=== PATIENT | male | born 1945 | race Caucasian/White ===

== ENCOUNTER 2024-06-14 10:51 | Outpatient (CLI) | payer MEDICARE | END 2024-06-14 10:52 | disposition home or self-care (01) | LOC: CT 10:51 | PROVIDERS: ATTEND Family Medicine | DX: R31.0 Gross hematuria (principal); N28.89 Other specified disorders of kidney and ureter; R91.8 Other nonspecific abnormal finding of lung field; R59.0 Localized enlarged lymph nodes; K76.89 Other specified diseases of liver; I87.8 Other specified disorders of veins | CPT/HCPCS: 74176; 81001 ==

== ENCOUNTER 2024-06-15 07:46 | Outpatient (CLI) | payer MEDICARE | END 2024-06-15 07:47 | disposition home or self-care (01) | LOC: CT 07:46 | PROVIDERS: ATTEND Family Medicine | DX: N28.89 Other specified disorders of kidney and ureter (principal); C78.01 Secondary malignant neoplasm of right lung; C78.02 Secondary malignant neoplasm of left lung; C78.7 Secondary malignant neoplasm of liver and intrahepatic bile duct; C64.1 Malignant neoplasm of right kidney, except renal pelvis; C79.51 Secondary malignant neoplasm of bone; K76.9 Liver disease, unspecified; R59.0 Localized enlarged lymph nodes | CPT/HCPCS: 36415; 71260; 74177; 82565 ==

== ENCOUNTER 2024-07-07 07:23 | Day surgery (SDC) | payer MEDICARE ==
[2024-07-07 08:01] LABS: #Basophils Less than 0.03 10x3/uL (0.0-0.2); %Basophils 0.1 % (0.0-1.0); %Eosinophils 0.4 % (0.0-10.0); %Lymphocytes 23.5 % (21.0-51.0); %Monocytes 13.1 % (0.0-10.0); %Neutrophils 61.5 % (42.0-75.0); Hematocrit 27.8 % (42.0-52.0); Hemoglobin 8.4 g/dL (14.0-18.0); Mean Corpuscular HGB CONC 30.2 g/dL (32.0-36.0); Mean Corpuscular Hemoglobin 24.3 pg (27.0-31.0); Mean Corpuscular Volume 80.3 fL (78.0-98.0); Platelet Count 277 10x3/uL (130-400); Red Blood Cell (RBC) Count 3.46 mill/uL (4.70-6.10)
[2024-07-07 08:28] LABS: INR-International Normal Ratio 1.2; Prothrombin Time 15.2 sec (12.0-14.7)
[2024-07-07 08:29] LABS: PTT 33.6 sec (22.9-36.1)
[2024-07-07] MEDS ORDERED: fentaNYL 50 mcg/mL 1 mL Vial ONE (08:38)
[2024-07-07] MEDS ORDERED: Lidocaine 1% PF 5 ML VIAL ONE (08:38)
[2024-07-07] MEDS ORDERED: Midazolam HCl 2 mg/2 ml Vial ONE (08:38)
[2024-07-07] MEDS ORDERED: Sodium Bicarbonate 2.5 MEQ/5 ML SDV ONE (08:39)
[2024-07-07] MEDS ORDERED: Lidocaine 1% w/Epinephrine 1:100K 20 ML VIAL ONE (08:39)
[2024-07-07] MEDS ORDERED: hydrALAZINE 20 MG/ML VIAL ONE (09:05)
[2024-07-07] MEDS ORDERED: Hydrochlorothiazide 25 MG TAB PO SCH (09:30)
[2024-07-07] MEDS ORDERED: Metoprolol Tartrate 5 MG (5 mL) VIAL ONE (09:36)
== END 2024-07-07 10:20 | disposition home or self-care (01) ==
LOC: CT 07:23
PROVIDERS: ATTEND Family Medicine
DX: N28.89 Other specified disorders of kidney and ureter (principal); Z53.8 Procedure and treatment not carried out for other reasons; C78.7 Secondary malignant neoplasm of liver and intrahepatic bile duct; C78.01 Secondary malignant neoplasm of right lung; C78.02 Secondary malignant neoplasm of left lung
CPT/HCPCS: 85025; 85610; 85730; J0360; 36415; J2250; J3010

== ENCOUNTER 2024-07-27 14:11 | Outpatient (CLI) | payer MEDICARE ==
[2024-07-27] MEDS ORDERED: Iopamidol 370 76% 100 ML VIAL ONE (14:58)
== END 2024-07-27 14:12 | disposition home or self-care (01) ==
LOC: CT 14:11
PROVIDERS: ATTEND Internal Medicine
DX: C64.1 Malignant neoplasm of right kidney, except renal pelvis (principal); I82.3 Embolism and thrombosis of renal vein; D50.8 Other iron deficiency anemias; R06.02 Shortness of breath; C79.89 Secondary malignant neoplasm of other specified sites; J90 Pleural effusion, not elsewhere classified; J98.11 Atelectasis; R91.8 Other nonspecific abnormal finding of lung field; R59.0 Localized enlarged lymph nodes
CPT/HCPCS: 71275; 74160

== ENCOUNTER 2024-08-04 10:01 | Inpatient (IN) | payer MEDICARE ==
[2024-08-04 11:22] LABS: Hematocrit 31.8 % (42.0-52.0); Hemoglobin 9.9 g/dL (14.0-18.0); Mean Corpuscular HGB CONC 31.1 g/dL (32.0-36.0); Mean Corpuscular Hemoglobin 25.6 pg (27.0-31.0); Mean Corpuscular Volume 82.4 fL (78.0-98.0); Mean Platelet Volume 9.8 fL (7.4-10.4); Platelet Count 314 10x3/uL (130-400); RBC Distribution Width 23.4 % (11.5-14.5); Red Blood Cell (RBC) Count 3.86 mill/uL (4.70-6.10)
[2024-08-04] MEDS ORDERED: Sodium Chloride 0.9% 100 ML ONE (11:30)
[2024-08-04] MEDS ORDERED: Cefepime 2 GM VIAL ONE (11:30)
[2024-08-04 11:44] LABS: ALT (SGPT) 46 U/L (Less than 45); AST (SGOT) 142 U/L (11-34); Alkaline Phosphatase 210 U/L (40-110); Anion Gap 16 mmol/L (10-20); BUN (Urea Nitrogen) 83 mg/dL (8.4-25.7); Bilirubin, Total 0.5 mg/dL (0.3-1.2); Calc. Creatinine Clearance 0 mL/min (70-130); Calcium 9.1 mg/dL (7.8-10.44); Carbon Dioxide 24 mmol/L (23-31); Chloride 99 mmol/L (98-107); Estimated GFR 25; Globulin 4.4 g/dL (2.4-3.5); Glucose 93 mg/dL (83-110); Potassium 3.3 mmol/L (3.5-5.1); Protein, Total 6.4 g/dL (5.8-8.1); Sodium 136 mmol/L (136-145)
[2024-08-04 11:48] LABS: Troponin I 0.056 ng/mL (< 0.028)
[2024-08-04 11:55] LABS: Anisocytosis MODERATE=16-30 cells HPF (0-5); Burr Cells SLIGHT = 2-5 cells HPF (0-1); Lymphocytes 5 % (21-51); Monocytes 6 % (0-10); Neutrophil 88 % (42-75); Ovalocytes SLIGHT = 2-5 cells HPF (0-1); Platelet Adequacy Comment Platelets Normal; Polychromasia SLIGHT = 2-3 cells HPF (0-2); Promyelocytes 1 % (0-0)
[2024-08-04] MEDS: Cefepime 2 GM in Sodium Chloride 0.9% 100 ML IVPB SCH (15:23)
[2024-08-04] MEDS: Vancomycin (BATCH) 1.75 GM in Premix 1 BAG IVPB SCH (15:23)
[2024-08-04] MEDS: Sodium Chloride 0.9% 1,000 ML IV SCH (15:23)
[2024-08-04 16:13] VITALS: BMI 30.4
[2024-08-04] MEDS ORDERED: Vancomycin Dose by Levels Sliding Scale (Wt 71-99) FS SCH (17:30)
[2024-08-04 18:37] LABS: Lactic Acid 1.68 mmol/L (0.50-2.20)
[2024-08-04] MEDS: Albumin 25% 25 GM (100 mL) BOT IVPB SCH (20:08)
[2024-08-04] MEDS: FLU (Fluad Triv) TS24-25 (65UP)/MF59C/PF 45 MCG/0.5 ML Syringe IM ONE (20:15)
[2024-08-04] MEDS ORDERED: Vancomycin 1 GM in Premix 1 BAG IVPB SCH (21:00)
[2024-08-04] MEDS: Mirtazapine 30 MG TAB PO SCH (21:11)
[2024-08-04] MEDS: cefTRIAXone\\ROCEPHIN 1 GM in Sodium Chloride 0.9% 100 ML IVPB SCH (21:11)
[2024-08-04] MEDS: Famotidine 20 MG TAB PO SCH (21:11)
[2024-08-04] MEDS: Apixaban 5 MG TAB PO SCH (21:11)
[2024-08-05] MEDS: Albumin 25% 25 GM (100 mL) BOT IVPB SCH ×2 (02:04→17:54)
[2024-08-05 04:52] LABS: #Basophils Less than 0.03 10x3/uL (0.0-0.2); #Eosinophils Less than 0.03 10x3/uL (0.0-0.7); %Basophils 0.1 % (0.0-1.0); %Eosinophils 0.1 % (0.0-10.0); %Lymphocytes 13.9 % (21.0-51.0); %Monocytes 6.7 % (0.0-10.0); %Neutrophils 75.5 % (42.0-75.0); Hematocrit 28.1 % (42.0-52.0); Hemoglobin 8.3 g/dL (14.0-18.0); Mean Corpuscular HGB CONC 29.5 g/dL (32.0-36.0); Mean Corpuscular Hemoglobin 25.2 pg (27.0-31.0); Mean Corpuscular Volume 85.4 fL (78.0-98.0); Mean Platelet Volume 10.2 fL (7.4-10.4); Platelet Count 259 10x3/uL (130-400); RBC Distribution Width 23.5 % (11.5-14.5); Red Blood Cell (RBC) Count 3.29 mill/uL (4.70-6.10)
[2024-08-05 05:50] LABS: ALT (SGPT) 37 U/L (Less than 45); AST (SGOT) 118 U/L (11-34); Albumin 2.4 g/dL (3.1-4.5); Alkaline Phosphatase 156 U/L (40-110); Anion Gap 16 mmol/L (10-20); BUN (Urea Nitrogen) 82 mg/dL (8.4-25.7); Bilirubin, Total 0.4 mg/dL (0.3-1.2); Calc. Creatinine Clearance 29 mL/min (70-130); Calcium 8.6 mg/dL (7.8-10.44); Carbon Dioxide 22 mmol/L (23-31); Chloride 104 mmol/L (98-107); Estimated GFR 23; Globulin 3.5 g/dL (2.4-3.5); Glucose 69 mg/dL (83-110); Potassium 3.3 mmol/L (3.5-5.1); Protein, Total 5.9 g/dL (5.8-8.1); Sodium 138 mmol/L (136-145)
[2024-08-05] MEDS: Ipratropium/Albuterol 3 ML NEB NEB PRN (07:30)
[2024-08-05] MEDS: Ipratropium/Albuterol 3 ML NEB EZPAP SCH ×2 (10:51→22:45)
[2024-08-05 11:37] LABS: Phosphorus 4.7 mg/dL (2.5-4.5)
[2024-08-05 11:38] LABS: Anion Gap 14 mmol/L (10-20); BUN (Urea Nitrogen) 80 mg/dL (8.4-25.7); Calc. Creatinine Clearance 29 mL/min (70-130); Calcium 8.6 mg/dL (7.8-10.44); Carbon Dioxide 24 mmol/L (23-31); Chloride 104 mmol/L (98-107); Estimated GFR 23; Glucose 98 mg/dL (83-110); Magnesium 2.3 mg/dL (1.6-2.6); Potassium 3.4 mmol/L (3.5-5.1); Sodium 139 mmol/L (136-145); Vancomycin, Trough 15.3 ug/mL
[2024-08-05] MEDS: 1/2 NS w/Potassium 20 mEq 1,000 ML IV SCH (12:07)
[2024-08-05 13:25] VITALS: BMI 30.4
[2024-08-05] MEDS: Vancomycin HCl 500 MG in Sodium Chloride 0.9% 100 ML IVPB SCH (13:59)
[2024-08-05 14:36] LABS: Bilirubin Negative (Negative); Blood, Urine 2+ (Negative); Clarity Turbid (Clear); Glucose, Urine (Dipstick) Normal (Negative); Ketone, Urine Negative (Negative); Leukocyte 75 Leu/uL (Negative); Nitrite Negative (Negative); Protein, Urine (Dipstick) 30 mg/dL (Neg-Trace); RBC/HPF 21-50 HPF (0-3); Specific Gravity, Urine 1.014 (1.002-1.036); Squamous Epithelial 0-3 HPF (0-3); Urobilinogen Normal mg/dL (Less than 2)
[2024-08-05 14:37] LABS: Bacteria/HPF 1+ HPF (None Seen)
[2024-08-05] MEDS: methylPREDNISolone Sod Succ/PF 125 MG/2 ML VIAL IVP SCH ×2 (16:31→17:54)
[2024-08-05] MEDS: methylPREDNISolone Sod Succ 40 MG VIAL IVP SCH (20:45)
[2024-08-05] MEDS: Mirtazapine 15 MG TAB PO SCH (21:03)
[2024-08-05] MEDS: Magnesium Sulfate 3 GM in Sodium Chloride 0.9% 100 ML IVPB SCH (22:00)
[2024-08-06 03:13] LABS: #Basophils Less than 0.03 10x3/uL (0.0-0.2); #Eosinophils Less than 0.03 10x3/uL (0.0-0.7); %Basophils 0.1 % (0.0-1.0); %Lymphocytes 5.4 % (21.0-51.0); %Monocytes 1.2 % (0.0-10.0); %Neutrophils 90.9 % (42.0-75.0); Hemoglobin 8.3 g/dL (14.0-18.0); Mean Corpuscular HGB CONC 28.6 g/dL (32.0-36.0); Mean Corpuscular Hemoglobin 25.8 pg (27.0-31.0); Mean Corpuscular Volume 90.1 fL (78.0-98.0); Mean Platelet Volume 10.3 fL (7.4-10.4); Platelet Count 207 10x3/uL (130-400); RBC Distribution Width 23.4 % (11.5-14.5); Red Blood Cell (RBC) Count 3.22 mill/uL (4.70-6.10)
[2024-08-06 05:42] LABS: Lactic Acid 2.48 mmol/L (0.50-2.20)
[2024-08-06 05:44] LABS: ALT (SGPT) 34 U/L (Less than 45); AST (SGOT) 106 U/L (11-34); Alkaline Phosphatase 134 U/L (40-110); Anion Gap 22 mmol/L (10-20); BUN (Urea Nitrogen) 81 mg/dL (8.4-25.7); Bilirubin, Total 0.4 mg/dL (0.3-1.2); Calc. Creatinine Clearance 29 mL/min (70-130); Calcium 9.1 mg/dL (7.8-10.44); Carbon Dioxide 16 mmol/L (23-31); Chloride 106 mmol/L (98-107); Estimated GFR 23; Globulin 3.4 g/dL (2.4-3.5); Glucose 134 mg/dL (83-110); Potassium 3.9 mmol/L (3.5-5.1); Protein, Total 6.4 g/dL (5.8-8.1); Sodium 140 mmol/L (136-145)
[2024-08-06 07:23] LABS: Albumin 3.1 g/dL (3.1-4.5)
[2024-08-06] MEDS: Albumin 25% 100 ML ONE (08:07)
[2024-08-06 08:35] LABS: CRP,High Sensitivity (Inhouse) 17.89 mg/dL (< or = 0.5)
[2024-08-06 11:37] LABS: Vancomycin, Trough 16.2 ug/mL
[2024-08-06] MEDS: Vancomycin HCl 500 MG in Sodium Chloride 0.9% 100 ML IVPB SCH (12:18)
[2024-08-06] MEDS: diphenhydrAMINE 50 MG/ML VIAL IVP SCH (21:05)
[2024-08-07 05:39] LABS: #Basophils Less than 0.03 10x3/uL (0.0-0.2); #Eosinophils Less than 0.03 10x3/uL (0.0-0.7); %Basophils 0.1 % (0.0-1.0); %Lymphocytes 5.3 % (21.0-51.0); %Monocytes 4.6 % (0.0-10.0); %Neutrophils 86.3 % (42.0-75.0); Hematocrit 27.1 % (42.0-52.0); Hemoglobin 7.9 g/dL (14.0-18.0); Mean Corpuscular HGB CONC 29.2 g/dL (32.0-36.0); Mean Corpuscular Hemoglobin 25.9 pg (27.0-31.0); Mean Corpuscular Volume 88.9 fL (78.0-98.0); Mean Platelet Volume 10.2 fL (7.4-10.4); Platelet Count 221 10x3/uL (130-400); RBC Distribution Width 23.3 % (11.5-14.5); Red Blood Cell (RBC) Count 3.05 mill/uL (4.70-6.10)
[2024-08-07 06:01] LABS: ALT (SGPT) 34 U/L (Less than 45); AST (SGOT) 90 U/L (11-34); Albumin 3.1 g/dL (3.1-4.5); Alkaline Phosphatase 117 U/L (40-110); Anion Gap 16 mmol/L (10-20); BUN (Urea Nitrogen) 88 mg/dL (8.4-25.7); Bilirubin, Total 0.3 mg/dL (0.3-1.2); Calc. Creatinine Clearance 31 mL/min (70-130); Calcium 8.8 mg/dL (7.8-10.44); Carbon Dioxide 22 mmol/L (23-31); Chloride 108 mmol/L (98-107); Estimated GFR 23; Globulin 3.2 g/dL (2.4-3.5); Glucose 114 mg/dL (83-110); Potassium 4.3 mmol/L (3.5-5.1); Protein, Total 6.3 g/dL (5.8-8.1); Sodium 142 mmol/L (136-145)
[2024-08-07] MEDS: Furosemide 40 MG (4 mL) VIAL SLOW IVP SCH (09:45)
[2024-08-07] MEDS: 1/2 NS w/Potassium 20 mEq 1,000 ML IV SCH (10:00)
[2024-08-07] MEDS: Albumin 25% 25 GM (100 mL) BOT IVPB SCH (11:35)
[2024-08-07] MEDS: Furosemide 100 MG (10 mL) VIAL SLOW IVP SCH (20:19)
[2024-08-07] MEDS: Famotidine/PF 20 mg/2ml Vial SLOW IVP SCH (20:19)
[2024-08-08] MEDS ORDERED: hydrALAZINE 20 MG/ML VIAL SLOW IVP PRN (03:02)
[2024-08-08] MEDS: Morphine 2 MG/ML VIAL SLOW IVP PRN (03:34)
[2024-08-08 03:36] LABS: Hematocrit 30.5 % (42.0-52.0); Hemoglobin 8.9 g/dL (14.0-18.0); Mean Corpuscular HGB CONC 29.2 g/dL (32.0-36.0); Mean Corpuscular Volume 89.2 fL (78.0-98.0); Mean Platelet Volume 10.6 fL (7.4-10.4); Platelet Count 284 10x3/uL (130-400); RBC Distribution Width 23.4 % (11.5-14.5); Red Blood Cell (RBC) Count 3.42 mill/uL (4.70-6.10)
[2024-08-08 03:50] LABS: Anion Gap 19 mmol/L (10-20); BUN (Urea Nitrogen) 91 mg/dL (8.4-25.7); Calc. Creatinine Clearance 28 mL/min (70-130); Calcium 9.3 mg/dL (7.8-10.44); Carbon Dioxide 20 mmol/L (23-31); Chloride 111 mmol/L (98-107); Estimated GFR 21; Glucose 125 mg/dL (83-110); Potassium 4.8 mmol/L (3.5-5.1); Sodium 145 mmol/L (136-145)
[2024-08-08 04:13] LABS: Anisocytosis SLIGHT = 6-15 cells HPF (0-5); Band 1 % (5-11); Elliptocytes SLIGHT = 2-5 cells HPF (0-1); Hypochromia SLIGHT = 6-15 cells HPF (0-5); Lymphocytes 3 % (21-51); Metamyelocyte 2 % (0-0); Monocytes 4 % (0-10); Myelocyte 1 % (0-0); Neutrophil 89 % (42-75); Platelet Adequacy Comment Platelets Normal; Polychromasia SLIGHT = 2-3 cells HPF (0-2); Smudge Cells 5.1 %
[2024-08-08] MEDS: Labetalol HCl 100 MG/20 ML VIAL SLOW IVP PRN (04:23)
[2024-08-08 04:24] VITALS: BP 182/83
[2024-08-08 10:12] VITALS: TEMP 96.9
[2024-08-08] MEDS: Morphine 4 MG/ML VIAL SLOW IVP PRN (10:46)
[2024-08-08] MEDS: Lorazepam 2 MG/ML VIAL SLOW IVP PRN (10:46)
== END 2024-08-08 11:13 | disposition expired | DRG 871 ==
LOC: ERS 10:01 → MSONC 14:28 → CCU 08-05 17:35 → IMCU/EMU 08-06 23:01
PROVIDERS: ADMIT Internal Medicine; ATTEND Internal Medicine
PROC: 3E03329 Introduction of Other Anti-infective into Peripheral Vein, Percutaneous Approach (ICD-10-PCS; principal; 2024-08-04)
PROC: 30233J1 Transfusion of Nonautologous Serum Albumin into Peripheral Vein, Percutaneous Approach (ICD-10-PCS; 2024-08-04)
PROC: 5A09457 Assistance with Respiratory Ventilation, 24-96 Consecutive Hours, Continuous Positive Airway Pressure (ICD-10-PCS; 2024-08-05)
PROC: 5A0935A Assistance with Respiratory Ventilation, Less than 24 Consecutive Hours, High Flow/Velocity Cannula (ICD-10-PCS; 2024-08-06)
DX: A41.9 Sepsis, unspecified organism (principal); E43 Unspecified severe protein-calorie malnutrition; J96.01 Acute respiratory failure with hypoxia; L03.116 Cellulitis of left lower limb; C64.9 Malignant neoplasm of unspecified kidney, except renal pelvis; N17.9 Acute kidney failure, unspecified; I82.3 Embolism and thrombosis of renal vein; E87.20 Acidosis, unspecified; D84.9 Immunodeficiency, unspecified; R65.20 Severe sepsis without septic shock; Z51.5 Encounter for palliative care; R74.01 Elevation of levels of liver transaminase levels; Z88.0 Allergy status to penicillin; Z79.01 Long term (current) use of anticoagulants; Z98.890 Other specified postprocedural states; Z79.899 Other long term (current) drug therapy; Z90.89 Acquired absence of other organs; E78.00 Pure hypercholesterolemia, unspecified; N18.2 Chronic kidney disease, stage 2 (mild); I12.9 Hypertensive chronic kidney disease with stage 1 through stage 4 chronic kidney disease, or unspecified chronic kidney disease; E87.6 Hypokalemia; I87.2 Venous insufficiency (chronic) (peripheral)
CPT/HCPCS: 36415; 36416; 71045; 76770; 80048; 80053; 80202; 81001; 83605; 83735; 83880; 84100; 84300; 84484; 85025; 86141; 87040; 87081; 87428; 93005; 93970; 94640; 94660; 96374; 96375; 97139; J0692; J0696; J1200; J1940; J2060; J2270; J2272; J2919; J3370; J3475; J3480; J3490; J7030; J7620; P9047